=== PATIENT | male | born 1970 | race Caucasian/White ===

== ENCOUNTER 2016-12-07 23:43 | Emergency (ER) | payer OTHER ==
[~2016-12-07] VITALS: Ht 175.3 cm; Wt 79.5 kg
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
[2016-12-08 00:38] VITALS: BP 131/87; PULSE 94; RESP 14; TEMP 98.6; O2SAT 98
[2016-12-08 01:07] LABS: AUTOMATED NEUTROPHIL # 6.1 TH/MM3 (1.8-7.7); BASOPHIL # 0.1 TH/MM3 (0-0.2); BASOPHIL % 0.7 % (0.0-2.0); EOSINOPHIL # 0.1 TH/MM3 (0-0.4); EOSINOPHIL % 1.2 % (0.0-4.0); HEMATOCRIT 42.1 % (39.0-51.0); HEMO FLAGS DIFF FINAL; LYMPH % 17.4 % (9.0-44.0); LYMPHOCYTE # 1.4 TH/MM3 (1.0-4.8); MEAN CELL VOLUME 90.3 FL (80.0-100.0); MEAN CORPUSCULAR HEMOGLOBIN 32.4 PG (27.0-34.0); MEAN CORPUSCULAR HGB CONC 35.8 % (32.0-36.0); MONO % 6.8 % (0.0-8.0); NEUT % 73.9 % (16.0-70.0); PLATELET COUNT 356 TH/MM3 (150-450); RED BLOOD COUNT 4.66 MIL/MM3 (4.50-5.90); RED CELL DISTRIBUTION WIDTH 13.4 % (11.6-17.2); WHITE BLOOD COUNT 8.3 TH/MM3 (4.0-11.0)
[2016-12-08 01:24] LABS: ALT (GPT) 31 U/L (12-78); ANION GAP 7 MEQ/L (5-15); AST (GOT) 17 U/L (15-37); BICARBONATE 30.5 MEQ/L (21.0-32.0); BLOOD UREA NITROGEN 7 MG/DL (7-18); CHLORIDE 103 MEQ/L (98-107); GLOMERULAR FILTRATION RATE 92 ML/MIN (>89); POTASSIUM 4.1 MEQ/L (3.5-5.1); SODIUM (NA) 140 MEQ/L (136-145)
[2016-12-08 01:26] LABS: ACETAMINOPHEN LESS THAN 2.0 MCG/ML (10.0-30.0); ALKALINE PHOSPHATASE 91 U/L (45-117); TOTAL BILIRUBIN ADULT 0.2 MG/DL (0.2-1.0)
--- NOTE | 2016-12-08 01:49 | PD ---
Physical Exam Narrative Patient was signed out to me by Dr. Gutierres pending lab results. Please see her dictation for full H&P. Patient resting comfortably in bed in no acute distress. RESPIRATORY: No accessory muscle use. No respiratory distress. Data Data Last Documented VS Vital Signs Date Time Temp Pulse Resp B/P Pulse Ox O2 Delivery O2 Flow Rate FiO2 12/08/16 00:38 98.6 94 14 131/87 98 Orders Complete Blood Count With Diff (12/07/16 23:58) Comprehensive Metabolic Panel (12/07/16 23:58) Psych Screen (12/07/16 23:58) Drug Screen, Random Urine (12/07/16 23:58) Alcohol (Ethanol) (12/07/16 23:58) Salicylates (Aspirin) (12/07/16 23:58) Tylenol (Acetaminophen) (12/07/16 23:58) Labs Laboratory Tests Test 12/08/16 00:55 White Blood Count 8.3 TH/MM3 Red Blood Count 4.66 MIL/MM3 Hemoglobin 15.1 GM/DL Hematocrit 42.1 % Mean Corpuscular Volume 90.3 FL Mean Corpuscular Hemoglobin 32.4 PG Mean Corpuscular Hemoglobin 35.8 % Concent Red Cell Distribution Width 13.4 % Platelet Count 356 TH/MM3 Mean Platelet Volume 6.7 FL Neutrophils (%) (Auto) 73.9 % Lymphocytes (%) (Auto) 17.4 % Monocytes (%) (Auto) 6.8 % Eosinophils (%) (Auto) 1.2 % Basophils (%) (Auto) 0.7 % Neutrophils # (Auto) 6.1 TH/MM3 Lymphocytes # (Auto) 1.4 TH/MM3 Monocytes # (Auto) 0.6 TH/MM3 Eosinophils # (Auto) 0.1 TH/MM3 Basophils # (Auto) 0.1 TH/MM3 CBC Comment DIFF FINAL Differential Comment Sodium Level 140 MEQ/L Potassium Level 4.1 MEQ/L Chloride Level 103 MEQ/L Carbon Dioxide Level 30.5 MEQ/L Anion Gap 7 MEQ/L Blood Urea Nitrogen 7 MG/DL Creatinine 0.89 MG/DL Estimat Glomerular Filtration 92 ML/MIN Rate Random Glucose 96 MG/DL Calcium Level 8.7 MG/DL Total Bilirubin 0.2 MG/DL Aspartate Amino Transf 17 U/L (AST/SGOT) Alanine Aminotransferase 31 U/L (ALT/SGPT) Alkaline Phosphatase 91 U/L Total Protein 7.9 GM/DL Albumin 3.7 GM/DL Salicylates Level 3.2 MG/DL Acetaminophen Level LESS THAN 2.0 MCG/ML Ethyl Alcohol Level 121 MG/DL MDM Supervised Visit with WILIAN: No Narrative Course Labs were obtained and reviewed with the exception of urine drug screen. Patient medically cleared for further treatment and evaluation by psych. Final disposition per psych. Diagnosis Primary Impression: Alcohol intoxication Qualified Code: F10.120 - Alcohol intoxication, uncomplicated Condition: Stable Misha Young Dec 08, 2016 01:49
[2016-12-08 02:16] VITALS: BP 125/78; PULSE 94; RESP 19; O2SAT 96
[2016-12-08 06:19] VITALS: BP 128/60; PULSE 97; RESP 18; O2SAT 96
[2016-12-08 08:48] LABS: AMPHETAMINE, URINE NEG (NEG); BARBITURATES, URINE NEG (NEG); COCAINE, URINE NEG (NEG)
[2016-12-08 11:06] VITALS: BP 121/80; PULSE 101; RESP 18; TEMP 97.7; O2SAT 99
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
[2016-12-08] MEDS ORDERED: LEVE500T8 PO (14:01)
== END 2016-12-08 19:12 | disposition home or self-care (01) ==
LOC: NEPA 23:43 → NEPJ 12-08 19:12
DX: F10.129 Alcohol abuse with intoxication, unspecified (principal); F19.94 Other psychoactive substance use, unspecified with psychoactive substance-induced mood disorder; F17.210 Nicotine dependence, cigarettes, uncomplicated
CPT/HCPCS: 80053; 80307; 85025; 99283